=== PATIENT | female | born 1965 | race Caucasian/White ===

== ENCOUNTER 2023-07-20 13:20 | Emergency (ER) | payer MEDICAID ==
[~2023-07-20] VITALS: Ht 157.5 cm; Wt 58.0 kg
[2023-07-20 13:33] VITALS: TEMP 98.4; O2SAT 100
[2023-07-20] MEDS ORDERED: januvia (13:33)
[2023-07-20] MEDS ORDERED: jardiance (13:33)
[2023-07-20 14:00] VITALS: BP 142/78; PULSE 80; RESP 18
[2023-07-20] MEDS ORDERED: HYDROCODONE/ACETAMINOPHEN 5/325MG TABLET PO ONE (14:00)
[2023-07-20] MEDS ORDERED: IBUP-2029 MT (17:48)
[2023-07-20] MEDS ORDERED: T3 PO (17:48)
== END 2023-07-20 19:18 | disposition home or self-care (01) ==
LOC: ER 13:20
DX: S82.892A Other fracture of left lower leg, initial encounter for closed fracture (principal); M97.22XA Periprosthetic fracture around internal prosthetic left ankle joint, initial encounter; E11.9 Type 2 diabetes mellitus without complications; E78.00 Pure hypercholesterolemia, unspecified; Z88.5 Allergy status to narcotic agent; X50.9XXA Other and unspecified overexertion or strenuous movements or postures, initial encounter; Y93.89 Activity, other specified; Y92.89 Other specified places as the place of occurrence of the external cause; Y99.8 Other external cause status
CPT/HCPCS: 73610; 29515; 99283; Z7610